=== PATIENT | female | born 1970 | race African-American/Black ===

== ENCOUNTER → 2016-08-19 | Emergency (ER) | payer OTHER ==
[~2016-08-19] MED LIST: ASPIRIN PO; OXYBUTYNIN5 MG/BOTTL PO; PRILOSEC20 M1 PO
[2016-08-19 11:50] LABS: INFLUENZA A NEG (NEG); INFLUENZA B NEG (NEG)
== END | disposition home or self-care (01) ==
LOC: CFTX 12:20
PROVIDERS: Emergency Medicine
DX: J06.9 Acute upper respiratory infection, unspecified (principal); K21.9 Gastro-esophageal reflux disease without esophagitis; F17.210 Nicotine dependence, cigarettes, uncomplicated; Z79.899 Other long term (current) drug therapy
CPT/HCPCS: 87804; 87880; 96372; 99283; J0561